=== PATIENT | male | born 1960 | race Caucasian/White ===

== ENCOUNTER 2020-09-09 10:03 | Inpatient (IN) | payer BC, OTHER ==
[~2020-09-09] VITALS: Ht 172.7 cm; Wt 87.4 kg
[2020-09-09 10:44] LABS: Basophils # (auto) 0 10 ^3/uL (0-0.2); Eosinophils # (auto) 0.1 10 ^3/uL (0-0.8)
[2020-09-09 10:46] LABS: Basophils % (auto) 0.5 % (0.0-2.0); Eosinophils % (auto) 1.1 % (0.0-7.0); Hematocrit 36.1 % (41.0-53.0); Lymphocytes # (auto) 0.8 10 ^3/uL (0.4-5.4); Lymphocytes % (auto) 11.4 % (10.0-50.0); Mean Corpuscular Hemoglobin 30.9 pg (28.0-32.0); Mean Corpuscular Hgb Conc. 36.1 g/dL (32.0-36.0); Mean Corpuscular Volume 85.7 fL (80.0-100.0); Monocytes # (auto) 0.8 10 ^3/uL (0-1.3); Neutrophils # (auto) 5.3 10 ^3/uL (1.6-8.6); Nucleated Red Blood Cells % 0.2 %; Platelet Count (auto) 451 10^3/uL (140-450); Red Blood Cells 4.21 10^6/uL (4.5-5.90); Red Cell Distribution Width 12.9 % (11.8-14.3)
[2020-09-09 11:18] LABS: Albumin 2.7 g/dL (3.4-5.0); BUN/Creatinine Ratio 16.3; Bilirubin, Total 0.6 mg/dL (0.2-1.0); Calcium 9.5 mg/dL (8.5-10.1); Potassium 3.8 mmol/L (3.5-5.1); Total Protein 7.1 g/dL (6.4-8.2)
[2020-09-09] MEDS ORDERED: ASCORBIC ACID 500 MG TAB PO ONE (11:30)
[2020-09-09] MEDS ORDERED: ZINC SULFATE 220mg CAP or TAB PO ONE (11:30)
[2020-09-09] MEDS ORDERED: AZITHROMYCIN 500MG/ 250ML 250 ML IV ONE (11:30)
[2020-09-09] MEDS ORDERED: DexAMETHasone SOD PHOS 10MG/1ML VIAL INJ IV ONE (11:30)
[2020-09-09 12:13] LABS: INR 0.99 (0.9-1.15); Partial Thromboplastin Time 27.3 sec (23.0-31.2)
[2020-09-09] MEDS ORDERED: ACETAMINOPHEN 500 MG TAB PO PRN (14:00)
[2020-09-09 15:18] LABS: CRP High Sensitivity 12.5 mg/dL (< 0.3)
[2020-09-09] MEDS ORDERED: MORPHINE SULF INJ 2 MG/ML SYRINGE 1ML IV PRN (21:00)
[2020-09-09] MEDS ORDERED: NITROGLYCERIN 0.4 MG SL TAB SL PRN (21:00)
[2020-09-10] VITALS: BP_SYST 132; BP_SYST 133; BP_DIAS 78; BP_DIAS 82
[2020-09-10 01:55] VITALS: BP 133/82
[2020-09-10 07:38] LABS: Basophils # (auto) 0 10 ^3/uL (0-0.2); Eosinophils # (auto) 0 10 ^3/uL (0-0.8); Mean Corpuscular Hemoglobin 30.2 pg (28.0-32.0); Monocytes # (auto) 0.7 10 ^3/uL (0-1.3)
[2020-09-10 07:41] LABS: Potassium 3.7 mmol/L (3.5-5.1)
[2020-09-10 07:42] LABS: Basophils % (auto) 0.2 % (0.0-2.0); Hematocrit 36.7 % (41.0-53.0); Hemoglobin 12.9 g/dL (13.5-17.5); Lymphocytes # (auto) 0.4 10 ^3/uL (0.4-5.4); Lymphocytes % (auto) 8.4 % (10.0-50.0); Mean Corpuscular Hgb Conc. 35.1 g/dL (32.0-36.0); Monocytes % (auto) 13.2 % (0.0-12.0); Neutrophils % (auto) 78.2 % (37.0-80.0); Nucleated Red Blood Cells % 0.4 %; Platelet Count (auto) 521 10^3/uL (140-450); Red Blood Cells 4.27 10^6/uL (4.5-5.90); Red Cell Distribution Width 13.2 % (11.8-14.3); White Blood Cell 5.1 10^3/uL (4.4-10.8)
[2020-09-10 08:00] VITALS: BP 119/67
[2020-09-10 08:00] LABS: Albumin 2.5 g/dL (3.4-5.0); BUN/Creatinine Ratio 22.5; Bilirubin, Total 0.8 mg/dL (0.2-1.0); Total Protein 6.8 g/dL (6.4-8.2)
[2020-09-10 09:00] VITALS: BP 119/67
[2020-09-10] MEDS: AZITHROMYCIN 500MG/ 250ML 250 ML IV SCH (09:53)
[2020-09-10] MEDS: ZINC SULFATE 220mg CAP or TAB PO SCH (09:54)
[2020-09-10] MEDS: ASCORBIC ACID 1,000 MG TAB PO SCH (09:54)
[2020-09-10] MEDS: CHOLECALCIFEROL (VITD3) 2,000 UNIT CAP PO SCH (09:55)
[2020-09-10] MEDS: DexAMETHasone SOD PHOS 10MG/1ML VIAL INJ IV SCH (09:55)
[2020-09-10] MEDS: ENOXAPARIN SOD 40 MG/0.4 ML SYRINGE SC SCH (09:55)
[2020-09-10 10:36] LABS: Urine Bacteria NONE SEEN /hpf (None Seen); Urine Blood Negative /uL (Negative); Urine Specific Gravity 1.023 (1.001-1.035); Urine WBC 1 /hpf (0 - 3)
[2020-09-10 15:56] VITALS: BP 117/63
[2020-09-10] MEDS ORDERED: REMDESIVIR PER PHARMACY 0 ML IV SCH (16:00)
[2020-09-10] MEDS ORDERED: REMDESIVIR 200 MG in NS 210ml LOADING DOSE ADULT IV ONE (17:00)
[2020-09-10] MEDS: ALBUTEROL SULF HFA 90MCG INH 200DOSE IN PRN (19:55)
[2020-09-11] VITALS: BP 132/78
[2020-09-11 08:00] VITALS: BP 122/92
[2020-09-11 08:09] LABS: Calcium 8.9 mg/dL (8.5-10.1); Potassium 4.4 mmol/L (3.5-5.1)
[2020-09-11 08:24] LABS: Albumin 2.4 g/dL (3.4-5.0); BUN/Creatinine Ratio 19.5; Bilirubin, Total 0.4 mg/dL (0.2-1.0); Total Protein 6.5 g/dL (6.4-8.2)
[2020-09-11] MEDS: DexAMETHasone SOD PHOS 10MG/1ML VIAL INJ IV SCH (10:49)
[2020-09-11] MEDS: AZITHROMYCIN 500MG/ 250ML 250 ML IV SCH (10:50)
[2020-09-11] MEDS: ASCORBIC ACID 1,000 MG TAB PO SCH (10:50)
[2020-09-11] MEDS: ZINC SULFATE 220mg CAP or TAB PO SCH (10:50)
[2020-09-11] MEDS: ENOXAPARIN SOD 40 MG/0.4 ML SYRINGE SC SCH (10:51)
[2020-09-11] MEDS: CHOLECALCIFEROL (VITD3) 2,000 UNIT CAP PO SCH (10:51)
[2020-09-11] MEDS ORDERED: AMLO-496 PO (12:47)
[2020-09-11] MEDS ORDERED: ATOR20TA50 PO (12:48)
[2020-09-11] MEDS ORDERED: LISI-646 PO (12:52)
[2020-09-11] MEDS ORDERED: TAMS0.4C36 PO (13:22)
[2020-09-11] MEDS ORDERED: MULT-1018 PO (13:24)
[2020-09-11] MEDS: REMDESIVIR 100mg 100 MG in SODIUM CHL 0.9% 230 ML IV SCH (15:15)
[2020-09-11 15:48] VITALS: BP 130/76
[2020-09-11] MEDS: ALBUTEROL SULF HFA 90MCG INH 200DOSE IN PRN (19:40)
[2020-09-12] VITALS: BP 118/65
[2020-09-12 07:16] LABS: Basophils # (auto) 0 10 ^3/uL (0-0.2); Basophils % (auto) 0.1 % (0.0-2.0); Eosinophils # (auto) 0 10 ^3/uL (0-0.8); Lymphocytes # (auto) 0.8 10 ^3/uL (0.4-5.4); Nucleated Red Blood Cells % 0.1 %; Platelet Count (auto) 615 10^3/uL (140-450); Red Blood Cells 4.38 10^6/uL (4.5-5.90)
[2020-09-12 07:19] LABS: Hematocrit 38.2 % (41.0-53.0); Hemoglobin 13.3 g/dL (13.5-17.5); Lymphocytes % (auto) 7.2 % (10.0-50.0); Mean Corpuscular Hemoglobin 30.3 pg (28.0-32.0); Mean Corpuscular Hgb Conc. 34.8 g/dL (32.0-36.0); Mean Corpuscular Volume 87.2 fL (80.0-100.0); Monocytes # (auto) 1.3 10 ^3/uL (0-1.3); Monocytes % (auto) 11.3 % (0.0-12.0); Neutrophils # (auto) 9.2 10 ^3/uL (1.6-8.6); Neutrophils % (auto) 81.4 % (37.0-80.0); Red Cell Distribution Width 13.1 % (11.8-14.3); White Blood Cell 11.2 10^3/uL (4.4-10.8)
[2020-09-12 07:44] LABS: Potassium 4.6 mmol/L (3.5-5.1)
[2020-09-12 07:57] LABS: Albumin 2.5 g/dL (3.4-5.0); BUN/Creatinine Ratio 25.4; Bilirubin, Total 0.6 mg/dL (0.2-1.0); Calcium 9.1 mg/dL (8.5-10.1); Total Protein 6.6 g/dL (6.4-8.2)
[2020-09-12 08:00] VITALS: BP 132/70
[2020-09-12] MEDS: ASCORBIC ACID 1,000 MG TAB PO SCH (10:41)
[2020-09-12] MEDS: CHOLECALCIFEROL (VITD3) 2,000 UNIT CAP PO SCH (10:41)
[2020-09-12] MEDS: ZINC SULFATE 220mg CAP or TAB PO SCH (10:41)
[2020-09-12] MEDS: DexAMETHasone SOD PHOS 10MG/1ML VIAL INJ IV SCH (10:41)
[2020-09-12] MEDS: AZITHROMYCIN 500MG/ 250ML 250 ML IV SCH (10:41)
[2020-09-12] MEDS: ENOXAPARIN SOD 40 MG/0.4 ML SYRINGE SC SCH (10:42)
[2020-09-12] MEDS: REMDESIVIR 100mg 100 MG in SODIUM CHL 0.9% 230 ML IV SCH (15:34)
[2020-09-12 16:00] VITALS: BP 126/69
[2020-09-13] VITALS: BP 131/79
[2020-09-13 08:00] VITALS: BP 144/78
[2020-09-13] MEDS: AZITHROMYCIN 500MG/ 250ML 250 ML IV SCH (09:39)
[2020-09-13] MEDS: DexAMETHasone SOD PHOS 10MG/1ML VIAL INJ IV SCH (09:39)
[2020-09-13] MEDS: ENOXAPARIN SOD 40 MG/0.4 ML SYRINGE SC SCH (09:40)
[2020-09-13] MEDS: ASCORBIC ACID 1,000 MG TAB PO SCH (09:40)
[2020-09-13] MEDS: CHOLECALCIFEROL (VITD3) 2,000 UNIT CAP PO SCH (09:40)
[2020-09-13] MEDS: ZINC SULFATE 220mg CAP or TAB PO SCH (09:40)
[2020-09-13 11:22] LABS: Basophils # (auto) 0 10 ^3/uL (0-0.2); Eosinophils # (auto) 0 10 ^3/uL (0-0.8); Monocytes # (auto) 1.8 10 ^3/uL (0-1.3)
[2020-09-13 11:25] LABS: Basophils % (auto) 0.1 % (0.0-2.0); Eosinophils % (auto) 0.1 % (0.0-7.0); Hematocrit 42.7 % (41.0-53.0); Hemoglobin 14.6 g/dL (13.5-17.5); Lymphocytes % (auto) 6.5 % (10.0-50.0); Mean Corpuscular Hemoglobin 30.1 pg (28.0-32.0); Mean Corpuscular Hgb Conc. 34.2 g/dL (32.0-36.0); Monocytes % (auto) 11.9 % (0.0-12.0); Neutrophils # (auto) 12.4 10 ^3/uL (1.6-8.6); Neutrophils % (auto) 81.4 % (37.0-80.0); Nucleated Red Blood Cells % 0.1 %; Red Blood Cells 4.85 10^6/uL (4.5-5.90); Red Cell Distribution Width 13.3 % (11.8-14.3); White Blood Cell 15.2 10^3/uL (4.4-10.8)
[2020-09-13 11:33] LABS: Potassium 4.2 mmol/L (3.5-5.1)
[2020-09-13 11:46] LABS: Albumin 3.4 g/dL (3.4-5.0); BUN/Creatinine Ratio 17.2; Bilirubin, Total 0.6 mg/dL (0.2-1.0); CRP High Sensitivity 2.61 mg/dL (< 0.3); Calcium 9.7 mg/dL (8.5-10.1); Total Protein 7.7 g/dL (6.4-8.2)
[2020-09-13 12:09] LABS: Platelet Count (auto) 730 10^3/uL (140-450)
[2020-09-13 14:36] VITALS: BP 126/76
[2020-09-13 15:53] VITALS: BP 148/87
[2020-09-13] MEDS: REMDESIVIR 100mg 100 MG in SODIUM CHL 0.9% 230 ML IV SCH (15:59)
[2020-09-13 16:00] VITALS: BP 148/87
== END 2020-09-13 18:00 | disposition home health service (06) | DRG 177 ==
LOC: ER 10:03 → TELE 21:00 → TELE-WESTW 22:16
PROVIDERS: ADMIT Hospitalist; ATTEND Hospitalist
PROC: XW033E5 Introduction of Remdesivir Anti-infective into Peripheral Vein, Percutaneous Approach, New Technology Group 5 (ICD-10-PCS; principal; 2020-09-10)
DX: U07.1 COVID-19 (principal); J96.01 Acute respiratory failure with hypoxia; J12.82 Pneumonia due to coronavirus disease 2019; I10 Essential (primary) hypertension; D89.839 Cytokine release syndrome, grade unspecified; R53.81 Other malaise; R74.01 Elevation of levels of liver transaminase levels
CPT/HCPCS: 36415; 36600; 71045; 80053; 81001; 82306; 82728; 82805; 83605; 83615; 83735; 84443; 85025; 85379; 85610; 85730; 86141; 87040; 87426; 93005; 93970; 94640; G0378; J1100